=== PATIENT | female | born 1965 | race Caucasian/White ===

== ENCOUNTER 2023-11-08 14:57 | Emergency (ER) | payer OTHER ==
[~2023-11-08] VITALS: Ht 152.4 cm; Wt 64.9 kg
[~2023-11-08 14:57] MED LIST: KEFLEX500 MG PO; PERCOCET 325 MG1 TA7 PO
[2023-11-08 15:13] VITALS: BP 149/83
[2023-11-08 16:38] LABS: BASO % 0.5 % (0.0-1.0); EOS # 0.2 10*3/uL (0.0-0.4); EOS % 2.3 % (1.0-4.0); HEMATOCRIT 44.7 % (37.0-47.0); LYMPH # 2.4 10*3/uL (1.3-4.4); LYMPH % 29.1 % (27.0-41.0); MEAN CELL VOLUME 91.4 fl (81.0-99.0); MEAN CORPUSCULAR HGB 29.2 pg (27.0-31.0); MEAN PLATELET VOLUME 8.3 fl (9.6-12.3); MONO # 0.5 10*3/uL (0.1-1.0); MONO % 6.2 % (3.0-9.0); NEUT # 5.1 10*3/uL (2.3-7.9); NEUT % 61.5 % (47.0-73.0); PLATELET COUNT AUTOMATED 327 10*3/uL (130-400); RED BLOOD COUNT 4.89 10*6/uL (4.10-5.10); RED CELL DISTRI WIDTH 12.7 % (0-14.5); WHITE BLOOD COUNT 8.2 10*3/uL (4.8-10.8)
[2023-11-08 17:03] LABS: ALKALINE PHOSPHATASE 65 U/L (46-116); BUN 9 mg/dl (9-23); CHLORIDE 104 mmol/L (98-107); LIPASE 48 U/L (12-53); SGPT/ALT 14 U/L (5-49); TOTAL PROTEIN 7.9 gm/dL (6.0-8.0)
[2023-11-08] MEDS ORDERED: IOHEXOL 300 MG/ML 100 ML VIAL IV ONE (17:25)
[2023-11-08] MEDS ORDERED: PREDNISONE10 M1 PO (19:53)
[2023-11-08 19:56] LABS: BILIRUBIN Negative (Negative); BLOOD Negative (Negative); CLARITY Clear (Clear); COLOR Yellow (Yellow); GLUCOSE Negative (Negative); KETONE Negative (Negative); LEUKO ESTERASE Negative (Negative); NITRITE Negative (Negative); PH 5.5 (4.5-8.0); SPECIFIC GRAVITY >= 1.030 (1.001-1.030); UROBILINOGEN 0.2 E.U./dl (0.0-1.0)
[2023-11-08] MEDS ORDERED: predniSONE 20 MG TAB PO ONE (20:05)
[2023-11-08 20:16] LABS: EPITHELIAL CELLS 0-2; WBC 0-2 wbc/hpf (0-5)
== END 2023-11-08 19:58 | disposition home or self-care (01) ==
LOC: ED 14:57
PROVIDERS: Nurse Practitioner
DX: K52.9 Noninfective gastroenteritis and colitis, unspecified (principal); E11.9 Type 2 diabetes mellitus without complications; Z98.890 Other specified postprocedural states